=== PATIENT | female | born 1965 | race Caucasian/White ===

== ENCOUNTER → 2018-12-03 | Outpatient (CLI) | payer MEDICARE, BC ==
--- NOTE | 2018-12-03 13:10 | MM ---
Reason for exam: screening (asymptomatic). Last mammogram was performed 2 years and 4 months ago. History: Patient is postmenopausal and had first child at age 32. Physical Findings: A clinical breast exam by your physician is recommended on an annual basis and results should be correlated with mammographic findings. MG 3D Screening Mammo W/Cad Bilateral CC and MLO view(s) were taken. Prior study comparison: August 03, 2016, bilateral MG 3d screening mammo w/cad. April 01, 2015, bilateral MG screening mammo w CAD. The breast tissue is heterogeneously dense. This may lower the sensitivity of mammography. No significant changes when compared with prior studies. ASSESSMENT: Benign, BI-RAD 2 RECOMMENDATION: Routine screening mammogram of both breasts in 1 year.
== END | disposition home or self-care (01) ==
LOC: RADMAMWWP 06:48
PROVIDERS: ATTEND Family Medicine
DX: Z12.31 Encounter for screening mammogram for malignant neoplasm of breast (principal)
CPT/HCPCS: 77063; 77067

== ENCOUNTER 2019-03-14 07:24 | Emergency (ER) | payer MEDICARE, BC ==
[2019-03-14] MEDS ORDERED: SODIUM CHLORIDE 0.9% 1,000 ML IV STA (07:54)
[2019-03-14] MEDS ORDERED: ONDANSETRON 4 MG/2 ML VIAL IVP STA (07:54)
[2019-03-14] MEDS ORDERED: MORPHINE SULFATE 4 MG/ML SYRINGE IV STA (07:54)
[2019-03-14] MEDS ORDERED: KETOROLAC 30 MG/ML 1 ML VIAL IVP STA (07:54)
[2019-03-14 08:20] LABS: Amorphous Sediment,Urine Occasional /hpf; Appearance,Urine Cloudy (Clear); Basophils # (A) 0.1 k/uL (0-0.2); Basophils % (A) 0 %; Bilirubin,Urine Negative (Negative); Blood,Urine Negative (Negative); Color,Urine Light Yellow; Eosinophils # (A) 0.1 k/uL (0-0.7); Eosinophils % (A) 1 %; Glucose,Urine (UA) Negative (Negative); HCT 50.4 % (34.0-46.0); HGB 16.4 gm/dL (11.4-16.0); Ketones,Urine Negative (Negative); Leukocyte Esterase,Urine Trace (Negative); Lymphocytes # (A) 1.2 k/uL (1.0-4.8); Lymphocytes % (A) 8 %; MCH 30.6 pg (25.0-35.0); MCHC 32.7 g/dL (31.0-37.0); MCV 93.6 fL (80.0-100.0); Mean Platelet Volume 7.3; Monocytes # (A) 0.6 k/uL (0-1.0); Monocytes % (A) 4 %; Mucus,Urine Rare /hpf; Neutrophils # (A) 13.3 k/uL (1.3-7.7); Neutrophils % (A) 87 %; Nitrite,Urine Negative (Negative); PH, Urine 6.5 (5.0-8.0); Platelet Count 352 k/uL (150-450); Protein,Urine Negative (Negative); RBC 5.38 m/uL (3.80-5.40); RBC,Urine 2 /hpf (0-5); RDW 13.8 % (11.5-15.5); Specific Gravity,Urine 1.015 (1.001-1.035); Squamous Epithelial Cell,Urine <1 /hpf (0-4); Urobilinogen,Urine <2.0 mg/dL (<2.0); WBC 15.3 k/uL (3.8-10.6); WBC,Urine 3 /hpf (0-5)
--- NOTE | 2019-03-14 08:30 | ED ---
General Adult HPI - General Chief complaint: Abdominal Pain Stated complaint: abdominal pain Time Seen by Provider: 03/14/19 07:34 Source: patient, RN notes reviewed Mode of arrival: ambulatory Limitations: no limitations - History of Present Illness Initial comments: 53-year-old female without any significant past medical history presents to the emergency department for a chief complaint of abdominal pain 5 hours. Patient states she woke up around 3 PM with a sharp constant left lower quadrant pain. Patient denies any alleviating or aggravating factors. Patient states it does feel a little better to lay on her left side. Patient admits to nausea as well, she denies any vomiting. States last bowel movement was yesterday and was normal. Denies diarrhea. Denies history of diverticulitis. Patient did have a tubal ligation and section, denies any other surgeries.Patient has no other complaints at this time including shortness of breath, chest pain, vomiting, headache, or visual changes. - Related Data Home Medications Medication Instructions Recorded Confirmed Methylphenidate HCl [Concerta] 36 mg PO DAILY 02/06/14 02/16/14 Previous Rx's Medication Instructions Recorded Acetaminophen-Codeine 300-30mg 1 each PO Q4HR PRN #30 tab 02/18/14 [Tylenol w/codeine #3] Ibuprofen [Motrin] 600 mg PO Q6HR PRN #60 tab 02/18/14 HYDROcodone/APAP 5-325MG [[place] 1 tab PO Q6HR PRN #10 tab 03/14/19 5-325] Ibuprofen [Motrin] 600 mg PO Q8HR PRN #20 tab 03/14/19 Ondansetron [Zofran ODT] 4 mg PO Q8HR PRN #15 tab 03/14/19 Tamsulosin [Flomax] 0.4 mg PO DAILY #10 cap 03/14/19 Allergies Allergy/AdvReac Type Severity Reaction Status Date / Time No Known Allergies Allergy Verified 02/16/14 15:38 Review of Systems ROS Statement: Those systems with pertinent positive or pertinent negative responses have been documented in the HPI. ROS Other: All systems not noted in ROS Statement are negative. Past Medical History Additional Past Medical History / Comment(s): ANEMIA R/T HEAVY, FREQ MENSES; ADHD History of Any Multi-Drug Resistant Organisms: None Reported Past Surgical History: Section, Tubal Ligation Past Anesthesia/Blood Transfusion Reactions: No Reported Reaction Past Psychological History: ADD/ADHD Smoking Status: Never smoker Past Alcohol Use History: None Reported Past Drug Use History: None Reported - Past Family History Father Family Medical History: Cancer (Lung), Coronary Artery Disease (CAD) General Exam Limitations: no limitations General appearance: alert, in no apparent distress Head exam: Present: atraumatic, normocephalic, normal inspection Eye exam: Present: normal appearance, PERRL, EOMI. Absent: scleral icterus, conjunctival injection, periorbital swelling ENT exam: Present: normal exam, mucous membranes moist Neck exam: Present: normal inspection, full ROM. Absent: tenderness, meningismus, lymphadenopathy Respiratory exam: Present: normal lung sounds bilaterally. Absent: respiratory distress, wheezes, rales, rhonchi, stridor Cardiovascular Exam: Present: regular rate, normal rhythm, normal heart sounds. Absent: systolic murmur, diastolic murmur, rubs, gallop, clicks GI/Abdominal exam: Present: soft, tenderness (Tenderness noted of the left lower quadrant, minimally tender in the left upper quadrant. No right abdominal tenderness or epigastric tenderness.), normal bowel sounds. Absent: distended, guarding, rebound, rigid Neurological exam: Present: alert, oriented X3, CN II-XII intact Psychiatric exam: Present: normal affect, normal mood Course Vital Signs 03/14/19 07:28 Temperature 97.8 F Pulse Rate 66 Respiratory 18 Rate Blood Pressure 154/89 O2 Sat by Pulse 100 Oximetry Medical Decision Making - Medical Decision Making 53-year-old female presents for left lower quadrant pain 5 hours. Patient has never had this type of pain before. No fevers or chills. No vomiting or diarrhea although patient does admit to nausea. Patient was found to have a 3 mm kidney stone noted at the left UVJ which is consistent with patient's clinical presentation. There is suspected for next rupture related to obstructing calculus as there is ill-defined retroperitoneal fluid centered near level of proximal left ureter. Patient does have a white count of 15.3 however this is likely reactive in nature. CMP is unremarkable. Patient was given a liter of fluids. Patient given morphine and Toradol, feeling much better at this time. Patient comfortable with discharged home. She will follow up with urology. Patient was given pain medication for home. She will return here if she has any worsening symptoms. - Lab Data Result diagrams: 03/14/19 07:45 03/14/19 07:45 Lab Results 03/14/19 03/14/19 03/14/19 Range/Units 07:45 07:45 07:45 WBC 15.3 H (3.8-10.6) k/uL RBC 5.38 (3.80-5.40) m/uL Hgb 16.4 H (11.4-16.0) gm/dL Hct 50.4 H (34.0-46.0) % MCV 93.6 (80.0-100.0) fL MCH 30.6 (25.0-35.0) pg MCHC 32.7 (31.0-37.0) g/dL RDW 13.8 (11.5-15.5) % Plt Count 352 (150-450) k/uL Neutrophils % 87 % Lymphocytes % 8 % Monocytes % 4 % Eosinophils % 1 % Basophils % 0 % Neutrophils # 13.3 H (1.3-7.7) k/uL Lymphocytes # 1.2 (1.0-4.8) k/uL Monocytes # 0.6 (0-1.0) k/uL Eosinophils # 0.1 (0-0.7) k/uL Basophils # 0.1 (0-0.2) k/uL Sodium 140 (137-145) mmol/L Potassium 5.0 (3.5-5.1) mmol/L Chloride 106 (98-107) mmol/L Carbon Dioxide 24 (22-30) mmol/L Anion Gap 10 mmol/L BUN 20 H (7-17) mg/dL Creatinine 0.89 (0.52-1.04) mg/dL Est GFR (CKD-EPI)AfAm 84 (>60 ml/min/1.73 sqM) Est GFR (CKD-EPI)NonAf 73 (>60 ml/min/1.73 sqM) Glucose 140 H (74-99) mg/dL Calcium 10.1 (8.4-10.2) mg/dL Total Bilirubin 0.5 (0.2-1.3) mg/dL AST 34 (14-36) U/L ALT 16 (9-52) U/L Alkaline Phosphatase 74 (38-126) U/L Total Protein 7.4 (6.3-8.2) g/dL Albumin 4.6 (3.5-5.0) g/dL Amylase 105 (30-110) U/L Lipase 88 (23-300) U/L Urine Color Urine Appearance (Clear) Urine pH (5.0-8.0) Ur Specific [place] (1.001-1.035) Urine Protein (Negative) Urine Glucose (UA) (Negative) Urine Ketones (Negative) Urine Blood (Negative) Urine Nitrite (Negative) Urine Bilirubin (Negative) Urine Urobilinogen (<2.0) mg/dL Ur Leukocyte Esterase (Negative) Urine RBC (0-5) /hpf Urine WBC (0-5) /hpf Ur Squamous Epith Cells (0-4) /hpf Amorphous Sediment (None) /hpf Urine Mucus (None) /hpf Urine HCG, Qual Not Detected (Not Detectd) 03/14/19 Range/Units 07:45 WBC (3.8-10.6) k/uL RBC (3.80-5.40) m/uL Hgb (11.4-16.0) gm/dL Hct (34.0-46.0) % MCV (80.0-100.0) fL MCH (25.0-35.0) pg MCHC (31.0-37.0) g/dL RDW (11.5-15.5) % Plt Count (150-450) k/uL Neutrophils % % Lymphocytes % % Monocytes % % Eosinophils % % Basophils % % Neutrophils # (1.3-7.7) k/uL Lymphocytes # (1.0-4.8) k/uL Monocytes # (0-1.0) k/uL Eosinophils # (0-0.7) k/uL Basophils # (0-0.2) k/uL Sodium (137-145) mmol/L Potassium (3.5-5.1) mmol/L Chloride (98-107) mmol/L Carbon Dioxide (22-30) mmol/L Anion Gap mmol/L BUN (7-17) mg/dL Creatinine (0.52-1.04) mg/dL Est GFR (CKD-EPI)AfAm (>60 ml/min/1.73 sqM) Est GFR (CKD-EPI)NonAf (>60 ml/min/1.73 sqM) Glucose (74-99) mg/dL Calcium (8.4-10.2) mg/dL Total Bilirubin (0.2-1.3) mg/dL AST (14-36) U/L ALT (9-52) U/L Alkaline Phosphatase (38-126) U/L Total Protein (6.3-8.2) g/dL Albumin (3.5-5.0) g/dL Amylase (30-110) U/L Lipase (23-300) U/L Urine Color Light Yellow Urine Appearance Cloudy H (Clear) Urine pH 6.5 (5.0-8.0) Ur Specific [place] 1.015 (1.001-1.035) Urine Protein Negative (Negative) Urine Glucose (UA) Negative (Negative) Urine Ketones Negative (Negative) Urine Blood Negative (Negative) Urine Nitrite Negative (Negative) Urine Bilirubin Negative (Negative) Urine Urobilinogen <2.0 (<2.0) mg/dL Ur Leukocyte Esterase Trace H (Negative) Urine RBC 2 (0-5) /hpf Urine WBC 3 (0-5) /hpf Ur Squamous Epith Cells <1 (0-4) /hpf Amorphous Sediment Occasional H (None) /hpf Urine Mucus Rare H (None) /hpf Urine HCG, Qual (Not Detectd) Disposition Clinical Impression: Ureterolithiasis Disposition: HOME SELF-CARE Condition: Good Instructions (If sedation given, give patient instructions): Kidney Stones (ED), How to Strain Your Urine (ED) Additional Instructions: Please take Motrin for pain. If pain is severe take [place] but do not drive or operate machinery while taking [place]. Take Zofran as needed for nausea. Take Flomax as directed. Follow-up with primary care and urology in 1-2 days. If pain is too severe, you are unable to keep down solids or liquids, or you're having any other worsening symptoms return immediately to the nearest emergency department. Prescriptions: Tamsulosin [Flomax] 0.4 mg PO DAILY #10 cap Ibuprofen [Motrin] 600 mg PO Q8HR PRN #20 tab PRN Reason: Pain HYDROcodone/APAP 5-325MG [[place] 5-325] 1 tab PO Q6HR PRN #10 tab PRN Reason: Pain Ondansetron [Zofran ODT] 4 mg PO Q8HR PRN #15 tab PRN Reason: Nausea Is patient prescribed a controlled substance at d/c from ED?: Yes When asked, does pt state using other controlled substances?: No If prescribed controlled substance>3 days was MAPS reviewed?: Prescribed <3 Days If opioid is for acute pain is fill amount 7 days or less?: Yes If Rx opioid, was Start Talking consent form obtained?: Yes Referrals: Darius Ventura MD [Primary Care Provider] - 1-2 days Siddhartha Colón MD [STAFF PHYSICIAN] - 1-2 days Time of Disposition: 09:31
[2019-03-14 08:33] LABS: Albumin 4.6 g/dL (3.5-5.0); Calcium 10.1 mg/dL (8.4-10.2); Total Bilirubin 0.5 mg/dL (0.2-1.3); Total Protein 7.4 g/dL (6.3-8.2)
--- NOTE | 2019-03-14 09:06 | CT ---
EXAMINATION TYPE: CT abdomen pelvis w con DATE OF EXAM: 03/14/2019 HISTORY: Left lower quadrant abdominal pain CT DLP: 510mGycm Automated Exposure Control for Dose Reduction was Utilized. CONTRAST: CT scan of the abdomen and pelvis is performed without oral but with IV Contrast, patient injected wi th 100 mL of Isovue 300. COMPARISON: None. FINDINGS: LUNG BASES: Patchy bibasilar linear scarring and/or atelectasis. LIVER/GB: Gallbladder has distended margins without CT evidence intraluminal gallstones or surroundin g inflammatory change. PANCREAS: Pancreas is normal in size, duct is not dilated. Just inferior and posterior to the pancrea s there is ill-defined fluid and fat stranding just left of the SMA axial image 30. SPLEEN: A few calcifications throughout the spleen are present. ADRENALS: No significant abnormality is seen. KIDNEYS: Left kidney shows 3 calculi measuring 4 mm or smaller in size. There is symmetric or directl y uptake and excretion with asymmetric mild to moderate left-sided hydronephrosis. Ill-defined fluid is most prominent along the course of the proximal left ureter without obstructing calculus clearly s een to level of UVJ where there is 3 mm obstructing calculus noted axial image 78. BOWEL: No significant abnormality is seen. UTERUS/ADNEXA: Uterus is surgically absent or markedly atrophic. LYMPH NODES: No greater than 1cm abdominal or pelvic lymph nodes are appreciated. OSSEOUS STRUCTURES: No significant abnormality is seen. OTHER: No significant additional abnormality is seen. IMPRESSION: There is 3 mm calculus at left UVJ causing [id number] left-sided hydronephrosis but not delayed excretion of contrast. There is suspected fornix rupture related to obstructing calculus as there is ill-defined retroperitoneal fluid centered near level of proximal left ureter.
[2019-03-14 09:48] VITALS: BP 147/74; PULSE 70; RESP 17; TEMP 97.7
--- NOTE | 2019-03-14 10:00 | XR ---
EXAMINATION TYPE: XR KUB DATE OF EXAM: 03/14/2019 COMPARISON: 03/14/2019 HISTORY: Left abdominal pain TECHNIQUE: One view abdominal series FINDINGS: The osseous structures are intact. The bowel gas pattern is nonspecific. Lung bases are clear. Cont rast seen within the collecting system there is extravasation of contrast within the left abdomen. Co ntrast in the bladder noted. IMPRESSION: 1. Nonspecific abdomen. Contrast is seen extravasating from the left renal collecting system may rep resent a ruptured calyx and should be correlated clinically.
== END 2019-03-14 09:49 | disposition home or self-care (01) ==
LOC: EC 07:24
DX: N20.2 Calculus of kidney with calculus of ureter (principal); F90.9 Attention-deficit hyperactivity disorder, unspecified type; Z98.51 Tubal ligation status; Z79.899 Other long term (current) drug therapy
CPT/HCPCS: 36415; 80053; 82150; 83690; 85025; 81001; 81025; 74018; 74177; 99284; 96374; 96375 ×2; 96361; J2270; J2405; J1885; Q9967

== ENCOUNTER 2019-03-19 10:35 | Day surgery (SDC) | payer MEDICARE, BC ==
[2019-03-18 11:14] VITALS: BMI 19.3
[~2019-03-19 10:35] MED LIST: AMPICILLIN 1,000 MG in SODIUM CHLORIDE 0.9% 50 ML IVPB ONE; GENTAMICIN 80 MG in SODIUM CHLORIDE 0.9% 100 ML IVPB ONE
[2019-03-19] MEDS ORDERED: LACTATED RINGERS 1,000 ML IV ONE ×2 (11:09→13:24)
[2019-03-19] MEDS ORDERED: ONDANSETRON 4 MG/2 ML VIAL IVP ONE (11:12)
[2019-03-19] MEDS ORDERED: DEXAMETHASONE SOD PHOSPHATE 4 MG/ML 1 ML VIAL IV ONE (11:12)
[2019-03-19 11:31] LABS: HCT 42.3 % (34.0-46.0); MCH 30.5 pg (25.0-35.0); MCHC 33.1 g/dL (31.0-37.0); MCV 92.2 fL (80.0-100.0); Mean Platelet Volume 6.9; Platelet Count 310 k/uL (150-450); RBC 4.59 m/uL (3.80-5.40); RDW 14.2 % (11.5-15.5); WBC 8.4 k/uL (3.8-10.6)
[2019-03-19 11:32] LABS: Calcium 9.6 mg/dL (8.4-10.2); Potassium 3.6 mmol/L (3.5-5.1)
[2019-03-19] MEDS ORDERED: PROPOFOL 10 MG/ML 20 ML VIAL IV ONE (12:50)
[2019-03-19] MEDS ORDERED: MIDAZOLAM 2 MG/2 ML VIAL ONE (12:50)
[2019-03-19] MEDS ORDERED: fentaNYL (PF) 50 MCG/ML 2 ML AMP ONE (12:50)
[2019-03-19] MEDS ORDERED: LIDOCAINE 1% INJ 10MG/ML (20 ML MDV) ONE (12:50)
[2019-03-19] MEDS ORDERED: IOPAMIDOL-370 50ML BTL MISCELLANE ONE (13:06)
--- NOTE | 2019-03-19 13:21 | P.OP ---
Date of Procedure: 03/19/19 Preoperative Diagnosis: Left ureteral calculus, urinary infection Postoperative Diagnosis: Same Procedure(s) Performed: Cystoscopy left retrograde pyelogram, left ureteroscopy Anesthesia: JOSE Surgeon: Tien Yanez Pathology: none sent Condition: stable Disposition: PACU Indications for Procedure: The patient is 53. For approximately 1 week she's been trying to pass the stone. She was seen in the office on Sunday after being in the emergency room over the weekend. She is having a severe amount of pain. We discussed admission to the hospital but she declined she wanted to try to pass it with the understanding if she did not with the next 24-48 hours we do manipulation. I spoke with yesterday she is still having pain. She describes low-grade fever. She had a urine culture that was growing. I started on some Bactrim. She comes for cystoscopy retrograde pyelogram and procedures indicated. She states that she does feel better. She has not seen the stone and has been straining. She is afebrile. We discussed the possibility of doing nothing versus retrograde. She chooses retrograde. Description of Procedure: Patient is brought to the operating suite. She is given a general anesthetic. She's placed lithotomy position with sterile prep and drape. Cystoscopy Foroblique lens and 22-Angolan sheath does identify some cystitis. Ureteral orifices were both normal. Within a cone-tipped catheter a left retrograde pyelograms performed. The ureters of normal course and caliber. There does not appear to be any hydroureteronephrosis but it does not drain very well. With this reason I will do a limited ureteroscopy.. The semirigid ureteroscope was passed up the iliac vessels. There is no evidence of stone or obstruction. Impression left ureteral stone passed., Urinary tract infection Recommendations: Patient should finish her antibiotics and found the office in one week.
[2019-03-19 13:43] VITALS: TEMP 97.8
--- NOTE | 2019-03-19 13:56 | XR ---
KUB HISTORY: Left ureteral calculus, preop Single frontal view KUB submitted and correlated to prior KUB 03/14/2019 The contrast has cleared compared to previous exam. There are calcifications seen within the left hem ipelvis, likely representing distal ureteral calculus measuring only 2 mm. Punctate calcifications pr esent over the left kidney again seen. No evident pneumoperitoneum. IMPRESSION: Left nephrolithiasis, distal left ureteral calculus.
[2019-03-19 14:22] VITALS: RESP 16
[2019-03-19 14:48] VITALS: BP 112/76; PULSE 78
--- NOTE | 2019-03-19 18:09 | FL ---
Fluoroscopy HISTORY: Renal calculi 14 seconds fluoroscopy time supplied to the referring clinician. 3 intraoperative C-arm images docum ent the procedure. See dictated report from urology.
== END 2019-03-19 15:03 | disposition home or self-care (01) ==
LOC: OR 10:35
PROVIDERS: ATTEND Urology
DX: N20.2 Calculus of kidney with calculus of ureter (principal); N39.0 Urinary tract infection, site not specified; Z82.49 Family history of ischemic heart disease and other diseases of the circulatory system; Z80.1 Family history of malignant neoplasm of trachea, bronchus and lung; Z79.1 Long term (current) use of non-steroidal anti-inflammatories (NSAID); Z79.899 Other long term (current) drug therapy; Z79.891 Long term (current) use of opiate analgesic
CPT/HCPCS: 74430; 80048; 85027; 74018; 52005; C1758; C1769; C1894; J2250; J1100; J2405; J2001; J3010; J1580; J0290; J2704; Q9967